=== PATIENT | male | born 1990 | race African-American/Black ===

== ENCOUNTER 2016-07-19 16:56 | Emergency (ER) | payer OTHER ==
[2016-07-19 17:05] VITALS: BP 149/65; PULSE 136; RESP 22; TEMP 99.7; O2SAT 100
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
[2016-07-19] MEDS ORDERED: HALOPERIDOL LACTATE 5 MG/ML AMP IM ONE (17:15)
[2016-07-19] MEDS ORDERED: diphenhydrAMINE HCL 50 MG/ML VIAL IM ONE (17:15)
[2016-07-19] MEDS ORDERED: LORazepam 2 MG/ML VIAL IM ONE (17:15)
[2016-07-19 17:51] LABS: AUTOMATED NEUTROPHIL # 13.9 TH/MM3 (1.8-7.7); BASOPHIL % 0.2 % (0.0-2.0); EOSINOPHIL % 0.1 % (0.0-4.0); HEMATOCRIT 42.1 % (39.0-51.0); HEMO FLAGS DIFF FINAL; LYMPH % 10.3 % (9.0-44.0); LYMPHOCYTE # 1.7 TH/MM3 (1.0-4.8); MEAN CELL VOLUME 87.7 FL (80.0-100.0); MEAN CORPUSCULAR HEMOGLOBIN 28.8 PG (27.0-34.0); MEAN CORPUSCULAR HGB CONC 32.8 % (32.0-36.0); MONO % 7.7 % (0.0-8.0); NEUT % 81.7 % (16.0-70.0); PLATELET COUNT 274 TH/MM3 (150-450); RED CELL DISTRIBUTION WIDTH 13.5 % (11.6-17.2)
[2016-07-19 18:07] LABS: ANION GAP 15 MEQ/L (5-15); AST (GOT) 31 U/L (15-37); BICARBONATE 23.1 MEQ/L (21.0-32.0); BLOOD UREA NITROGEN 11 MG/DL (7-18); CHLORIDE 102 MEQ/L (98-107); GLOMERULAR FILTRATION RATE 72 ML/MIN (>89); POTASSIUM 3.1 MEQ/L (3.5-5.1); SODIUM (NA) 140 MEQ/L (136-145)
[2016-07-19 18:08] LABS: ALT (GPT) 31 U/L (12-78)
[2016-07-19 18:10] LABS: ALKALINE PHOSPHATASE 102 U/L (45-117); TOTAL BILIRUBIN ADULT 1.1 MG/DL (0.2-1.0)
[2016-07-19 19:25] VITALS: BP 131/74; PULSE 100; RESP 18; O2SAT 98
[2016-07-19] MEDS ORDERED: POTASSIUM CHLORIDE 20 MEQ CONTROLLED RELEASE TAB PO ONE (20:00)
[2016-07-19] MEDS ORDERED: SODIUM CHLOR 0.9% 1000 ML INJ 1,000 ML IV ONE (20:00)
[2016-07-19 21:18] VITALS: BP 119/68; PULSE 79; RESP 20; TEMP 98.1; O2SAT 99
[2016-07-20 02:21] VITALS: BP 117/56; PULSE 70; RESP 18; O2SAT 98
[2016-07-20 06:55] VITALS: BP 117/60; PULSE 67; RESP 18; O2SAT 98
[2016-07-20 10:00] VITALS: BP 137/76; PULSE 95; RESP 18; O2SAT 98
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
== END 2016-07-20 11:56 | disposition home or self-care (01) ==
LOC: NEPE 16:56 → NEPJ 07-20 11:56
DX: F19.94 Other psychoactive substance use, unspecified with psychoactive substance-induced mood disorder (principal); F34.81 Disruptive mood dysregulation disorder; F12.10 Cannabis abuse, uncomplicated
CPT/HCPCS: 80053; 80307; 85025; 96372; 99285; J1200; J1630; J2060; J7030